=== PATIENT | male | born 1985 | race African-American/Black ===

== ENCOUNTER 2019-11-23 02:09 | Emergency (ER) | payer BC, OTHER ==
--- NOTE | 2019-11-23 02:30 | PDOC ---
Attending Attestation - Resident Resident Name: Ronaldo Cortes - ED Attending Attestation I have performed the following: I have examined & evaluated the patient, The case was reviewed & discussed with the resident, I agree w/resident's findings & plan - HPI HPI: 11/23/19 02:30 see resident hpi - Physicial Exam PE: 11/23/19 02:30 see resident exam - Medical Decision Making 11/23/19 02:53 33-year-old male complaining of palpitations after eating a chocolate marijuana edible Patient tachycardic on arrival with max heart rate of 141 Plan for EKG, labs and IV fluids Ativan 1 mg IV given as well Plan for reevaluation, pending labs will plan for likely DC home if improved Discharge - Discharge Information Problems reviewed: Yes Clinical Impression/Diagnosis: Substance abuse, Palpitations - Follow up/Referral - Patient Discharge Instructions - Post Discharge Activity
[2019-11-23 02:33] VITALS: BMI 35.4
[2019-11-23] MEDS ORDERED: LACTATED RINGERS SOLUTION 1000 ML INFUS.BAG IV ONE (02:39)
[2019-11-23] MEDS ORDERED: LORazepam 2 MG/ML SDV VIAL ONE (02:50)
[2019-11-23 03:27] VITALS: BP 134/60
[2019-11-23 03:33] LABS: BASO % 0.5 % (0-2.0); HEMATOCRIT 41.9 % (35.4-49); HEMOGLOBIN 13.7 GM/dL (11.7-16.9); LYMPH % 34.9 % (8-40); MCH 27.1 pg (25.7-33.7); MCHC 32.6 g/dl (32.0-35.9); MEAN CELL VOLUME 83.1 fl (80-96); MEAN PLT VOLUME 9.4 fl (7.5-11.1); MONO % 8.3 % (3.8-10.2); NEUT % 55.3 % (42.8-82.8); PLATELET COUNT 182 K/MM3 (134-434); RBC 5.04 M/mm3 (4.00-5.60); RDW 14.1 % (11.9-15.9); WHITE BLOOD COUNT 7.7 K/mm3 (4.0-10.0)
--- NOTE | 2019-11-23 03:35 | PDOC ---
History of Present Illness - General Chief Complaint: Palpitations Stated Complaint: FAST HEART RATE Time Seen by Provider: 11/23/19 02:30 - History of Present Illness Initial Comments: The pt is a 33M w/ no reported PMH who presents for evaluation of palpitations after consuming a cannabinoid edible tonight. The pt denies any other ingested or used substances tonight. Currently reports palpitations and anxiety. Denies STEIN, vision changes, chest pain, trouble breathing, N/V/C/D, dysuria, or changes in strength/sensation. Reports feeling this way previously in the past with cannabinoid use but not recently. Denies sick contacts, recent travel, or cough SH: +Social EtOH, THC use 11/23/19 03:30 Past History - Medical History Allergies/Adverse Reactions: Allergies Allergy/AdvReac Type Severity Reaction Status Date / Time No Known Allergies Allergy Verified 11/23/19 02:31 Home Medications: Ambulatory Orders NK [No Known Home Medication] 11/23/19 COPD: No - Immunization History Immunization Up to Date: Yes - Psycho-Social/Smoking History Smoking History: Never smoked Have you smoked in the past 12 months: No Information on smoking cessation initiated: No - Substance Abuse Hx (Audit-C & DAST Scrn) How often the patient has a drink containing alcohol: Monthly or less Number of drinks the patient has on a typical day: 1 or 2 How often the patient has six or more drinks on one occasion: Never Score: In Men: 4 or > Positive; In Women: 3 or > Positive: 1 Screen Result (Pos requires Nsg. Audit-10AR): Negative In the last yr the pt used illegal drug/Rx for NonMed reason: Yes Score: Yes response is considered Positive: 1 Screen Result (Positive result requires Nsg. DAST-10): Positive Review of Systems - Review of Systems Able to Perform ROS?: Yes Comments:: GENERAL/CONSTITUTIONAL: No fever or chills HEAD, EYES, EARS, NOSE AND THROAT: No change in vision. No change in hearing. No sore throat CARDIOVASCULAR: +palp; No chest pain or shortness of breath RESPIRATORY: Denies cough, hemoptysis GASTROINTESTINAL: No vomiting, diarrhea or constipation GENITOURINARY: No dysuria, frequency, or change in urination MUSCULOSKELETAL: No joint or muscle swelling or pain. No neck or back pain SKIN: No rash NEUROLOGIC: No headache, loss of consciousness, or change in strength/sensation ENDOCRINE: No increased thirst. No abnormal weight change HEMATOLOGIC/LYMPHATIC: No anemia, easy bleeding, or history of blood clots ALLERGIC/IMMUNOLOGIC: No hives or skin allergy 11/23/19 03:32 Is the patient limited Algerian proficient: No *Physical Exam - Vital Signs Last Vital Signs Temp Pulse Resp BP Pulse Ox 100.0 F H 113 H 16 134/60 98 11/23/19 02:31 11/23/19 03:20 11/23/19 03:20 11/23/19 03:20 11/23/19 03:20 - Physical Exam GENERAL: Awake, alert, and oriented to person/place/time, in no acute distress HEAD: No signs of trauma, normocephalic, atraumatic EYES: PERRLA, EOMI, sclera anicteric, conjunctiva injected ENT: Hearing grossly normal, nares patent, oropharynx clear without exudates. Moist mucosa LUNGS: No distress, speaks in full sentences, clear to auscultation bilaterally HEART: Sinus tachycardia normal S1 and S2, no murmurs appreciated, peripheral pulses normal and equal bilaterally ABDOMEN: Soft, nontender, normoactive bowel sounds. No guarding, no rebound EXTREMITIES: Normal inspection, Normal range of motion, no edema. No clubbing or cyanosis NEUROLOGICAL: Cranial nerves II through XII grossly intact. Normal speech, normal gait, no focal sensorimotor deficits SKIN: Warm, Dry 11/23/19 03:33 ED Treatment Course - LABORATORY CBC & Chemistry Diagram: 11/23/19 02:47 11/23/19 02:47 - RADIOLOGY Radiology Studies Ordered: Category Date Time Status CHEST X-RAY PORTABLE* [RAD] Stat Radiology 11/23/19 02:43 Taken - Medications Given in the ED: ED Medications Discontinued Medications Generic Name Dose Route Start Last Admin Trade Name Freq PRN Reason Stop Dose Admin Lactated Ringer's 1,000 ml 11/23/19 02:39 11/23/19 02:52 Lactated Ringers Solution IV 11/23/19 02:40 1,000 ml ONCE ONE Administration Lorazepam 1 mg 11/23/19 02:40 11/23/19 02:52 Ativan Injection - IVPUSH 11/23/19 02:41 1 mg ONCE ONE Administration Medical Decision Making - Medical Decision Making The pt is a 33M w/ no reported PMH who presents for evaluation of palpitations after consuming a cannabinoid edible tonight with notable tachycardia Consider ACS, Thyroid dysfunction; substance abuse; not likely PE ED Course Labs sent ECG w/ sinus tachycardia; HR 117; QTc 457; no axis deviation; no HELEN CXR w/o PNA, PNX or effusion 11/23/19 03:34 No leukocytosis No anemia Lytes overall unremarkable Cr 1.6, result discussed w/ pt and need for f/u Trop I neg TSH wnl UA w/o evidence of UTI, trace ketones noted Pt feels improved at this time and HR improved to 100s Repeat temp improved Plan for D/C w/ PCP f/u Discharge instructions and return precautions given Patient in agreement and verbalized understanding Dispo: Home 11/23/19 04:34 Discharge - Discharge Information Problems reviewed: Yes Clinical Impression/Diagnosis: Substance abuse, Palpitations Condition: Improved Disposition: HOME - Admission No - Follow up/Referral Referrals: [facility] [place] [Provider Group] Og Patel MD [Staff Physician] - - Patient Discharge Instructions Patient Printed Discharge Instructions: DI for Palpitations Additional Instructions: You were seen in the Emergency Department for evaluation of palpitations. Your labs and imaging were overall unremarkable. Your creatinine was elevated to 1.6 which was likely due to dehydration but should be noted when you see your primary care doctor next time you see them. Review the handout provided at discharge. A cardiology referral was also provided Avoid use of cannabinoid edible Return to the Emergency Department if you develop fevers, dizziness, vision changes, palpitations, chest pain, trouble breathing, worsening symptoms, or any new/concerning symptoms. - Post Discharge Activity
[2019-11-23 04:17] LABS: ALBUMIN 3.9 g/dl (3.4-5.0); ALK PHOS 95 U/L (45-117); ANION GAP 8 MMOL/L (8-16); BILIRUBIN,TOTAL 0.2 mg/dL (0.2-1); BLOOD UREA NITROGEN 14.8 mg/dL (7-18); CALCIUM 8.6 mg/dL (8.5-10.1); CHLORIDE 105 mmol/L (98-107); CO2 28 mmol/L (21-32); CREATININE 1.6 mg/dL (0.55-1.3); GLUCOSE,RANDOM 179 mg/dL (74-106); POTASSIUM 3.4 mmol/L (3.5-5.1); SGOT/AST 19 U/L (15-37); SGPT/ALT 44 U/L (13-61); SODIUM 140 mmol/L (136-145); TOT PROT 7.5 g/dl (6.4-8.2)
[2019-11-23 04:18] LABS: URINE APPEARANCE CLOUDY; URINE BILIRUBIN NEGATIVE (NEGATIVE); URINE COLOR YELLOW; URINE GLUCOSE (UA) NEGATIVE (NEGATIVE); URINE KETONE TRACE (NEGATIVE); URINE LEUK ESTERASE NEGATIVE (NEGATIVE); URINE NITRITE NEGATIVE (NEGATIVE); URINE PROTEIN NEGATIVE (NEGATIVE); URINE UROBILINOGEN 0.2 mg/dL (0.2-1.0)
[2019-11-23 04:43] VITALS: TEMP 98.2
[2019-11-23 04:52] VITALS: PULSE 106
--- NOTE | 2019-11-23 12:35 | EKG ---
Test Reason : Blood Pressure : / mmHG Vent. Rate : 117 BPM Atrial Rate : 117 BPM P-R Int : 172 ms QRS Dur : 092 ms QT Int : 328 ms P-R-T Axes : 055 014 021 degrees QTc Int : 457 ms SINUS TACHYCARDIA POSSIBLE LEFT ATRIAL ENLARGEMENT BORDERLINE ECG NO PREVIOUS ECGS AVAILABLE Confirmed by CEFERINO FORMAN MD ([id number]) on 11/23/2019 12:35:14 PM Referred By: Confirmed By:CEFERINO FORMAN MD
== END 2019-11-23 04:52 | disposition home or self-care (01) ==
LOC: JER 02:09
PROC: 3E033NZ Introduction of Analgesics, Hypnotics, Sedatives into Peripheral Vein, Percutaneous Approach (ICD-10-PCS; principal; 2019-11-23)
DX: F19.10 Other psychoactive substance abuse, uncomplicated (principal); R00.2 Palpitations
CPT/HCPCS: 36415; 71045-TC-FY; 80053; 81003; 84443; 84484; 85025; 87086; 93005; 93010; 99285-25